=== PATIENT | female | born 1965 | race Caucasian/White ===

== ENCOUNTER 2023-05-20 12:53 | Emergency (ER) | payer MEDICAID ==
[~2023-05-20] VITALS: Ht 167.6 cm; Wt 65.0 kg
[2023-05-20 12:55] VITALS: TEMP 98.4; O2SAT 99
[2023-05-20] MEDS ORDERED: SODIUM CHLORIDE 0.9% 1,000 ML IV ONE (13:00)
[2023-05-20 13:53] LABS: HEMATOCRIT. 30.9 % (36.0-48.0); HEMOGLOBIN. 10.3 g/dL (12.0-16.0); MEAN CORPUSCULAR HEMOGLOBIN 29.3 pg (28.0-32.0); MEAN CORPUSCULAR HGB CONC 33.2 g/dL (31.0-37.0); MEAN CORPUSCULAR VOLUME 88.4 fL (81.0-99.0); MEAN PLATELET VOLUME 8.5 fl (7.4-10.4); PLATELET 225 x1000/uL (130-400); RED CELL DISTRIBUTION WIDTH 15.4 % (11.6-14.6); WHITE BLOOD COUNT 14.4 x1000/uL (4.5-11.0)
[2023-05-20 13:58] LABS: DIFFERENTIAL COMMENT 1
[2023-05-20 14:05] LABS: ALANINE AMINOTRANSFERASE 11 IU/L (10-49); ALBUMIN 3.9 g/dL (3.2-4.8); ASPARTATE AMINOTRANSFERASE 28 IU/L (<34); BILIRUBIN TOTAL 0.6 mg/dL (0.1-1.0); CALCIUM 9.2 mg/dL (8.7-10.4); CARBON DIOXIDE 25 mEq/L (21-32); CHLORIDE 100 mEq/L (98-107); CREATININE 1.2 mg/dL (0.6-1.0); GLUCOSE 91 mg/dL (70-105); POTASSIUM 3.9 mEq/L (3.5-5.1); PROTEIN TOTAL 8.1 g/dL (6.0-8.3); SODIUM 133 mEq/L (136-145); UREA NITROGEN BLOOD 29 mg/dL (9-23)
[2023-05-20 14:13] LABS: TROPONIN I HIGH SENSITIVITY 48 ng/L (3.0-34)
[2023-05-20 14:32] LABS: PLATELET ESTIMATE NORMAL
[2023-05-20 15:24] LABS: TROPONIN I HIGH SENSITIVITY 51 ng/L (3.0-34)
[2023-05-20 15:29] VITALS: BP 154/77; PULSE 80; RESP 17
[2023-05-20 15:29] LABS: D-DIMER 30.14 mg/L FEU (<0.50); INR 1.2; PROTHROMBIN TIME 12.7 sec (9.6-11.0)
== END 2023-05-20 17:42 | disposition home or self-care (01) ==
LOC: ER 13:17
DX: R55 Syncope and collapse (principal); I10 Essential (primary) hypertension; E11.9 Type 2 diabetes mellitus without complications; Z86.39 Personal history of other endocrine, nutritional and metabolic disease
CPT/HCPCS: 99284; 96360; 80053; 83880; 85025; 85379; 85610; 84484; 36415; 93005; J7030